=== PATIENT | female | born 2000 | race Caucasian/White ===

== ENCOUNTER 2021-08-16 11:14 | Emergency (ER) | payer MEDICAID ==
[~2021-08-16] VITALS: Ht 167.6 cm; Wt 72.7 kg
[2021-08-16 11:23] VITALS: TEMP 98.1
[2021-08-16 11:55] LABS: MEAN CELL VOLUME 92 fl (80.0-100.0); MEAN CORPUSCULAR HEMOGLOBIN 30 pg (27.0-31.0); MEAN CORPUSCULAR HGB CONC 33 g/dl (33.0-37.0); MEAN PLATELET VOLUME 9.6 fl (7.4-10.4); PLATELET COUNT 322 K/mm3 (130-400); RED BLOOD COUNT 3.65 M/mm3 (4.10-5.30)
[2021-08-16 11:57] LABS: HEMATOCRIT 33.6 % (37.0-47.0)
[2021-08-16 11:59] LABS: COLLECTION METHOD CLEAN CATCH
[2021-08-16 12:03] LABS: ALBUMIN 3.9 gm/dL (3.5-5.0); BILIRUBIN,TOTAL 0.2 mg/dL (0.0-1.0); CALCIUM 8.7 mg/dL (8.4-10.2); CREATININE, serum 0.48 (0.52-1.25); POTASSIUM 3.8 mmol/L (3.4-5.0); TOTAL PROTEIN 7.4 gm/dL (6.4-8.2)
[2021-08-16 12:05] LABS: MUCOUS Present /lpf; PH 6 (5-8); SQUAMOUS EPITHELIAL 0-2 /hpf; URINE APPEARANCE Hazy; URINE BACTERIA Rare /hpf; URINE BILIRUBIN Negative (NEGATIVE); URINE BLOOD Negative (NEGATIVE); URINE COLOR Yellow; URINE GLUCOSE 1+ (NEGATIVE); URINE KETONE Negative (NEGATIVE); URINE LEUKOCYTE ESTERASE Negative (NEGATIVE); URINE NITRATE Negative (NEGATIVE); URINE PROTEIN(semi-quant) 2+ (NEGATIVE)
[2021-08-16 12:19] LABS: BAND 12 % (0-10); LYMPHOCYTE 17 % (20.0-51.0); NEUTROPHILS 70 % (42.0-75.2); PLATELET ESTIMATE NORMAL (NORMAL)
[2021-08-16 12:33] LABS: TSH w REFLEX 0.667 uIU/mL (0.350-4.940)
[2021-08-16] MEDS ORDERED: REGLAN 10MG10 MG/TAB PO (13:33)
[2021-08-16 13:58] VITALS: BP 108/63; PULSE 83
== END 2021-08-16 13:59 | disposition home or self-care (01) ==
LOC: COL.ER 11:14
PROVIDERS: Physician Assistant
DX: O26.892 Other specified pregnancy related conditions, second trimester (principal); R55 Syncope and collapse; D72.829 Elevated white blood cell count, unspecified; Z3A.21 21 weeks gestation of pregnancy
CPT/HCPCS: J7030

== ENCOUNTER 2021-12-18 10:45 | Inpatient (IN) | payer MEDICAID ==
[2021-12-18] VITALS (15 sets, daily range): BP systolic 102–130; BP diastolic 50–71; PULSE 68–115; TEMP 97.9–98.5
[~2021-12-18] VITALS: Ht 7 cm; Wt 82.3 kg
[~2021-12-18 10:45] MED LIST: REGLAN 10MG10 MG/TAB PO
--- NOTE | 2021-12-18 10:50 | NUR ---
Presents to labor and delivery. Vag exam done, dilated to five, eighty percent, minus two. Breathes through contractions. States has a birthing plan. Iv start to right upper arm. States not wanting any iv fluids. Spouse at bedside, very supportive.
[2021-12-18 11:47] LABS: BASO % 0.2 % (0.0-2.0); EOS # 0.1 K/mm3 (0.0-0.7); EOS % 0.6 % (0.0-4.0); GRAN # 12.3 K/mm3 (1.4-6.5); HEMOGLOBIN 10.2 g/dl (12.5-16.0); LYMPH # 3.1 K/mm3 (1.2-3.4); LYMPH % 18.3 % (20.0-51.0); MEAN CELL VOLUME 80 fl (80.0-100.0); MEAN CORPUSCULAR HEMOGLOBIN 26 pg (27-31); MEAN CORPUSCULAR HGB CONC 33 g/dl (33.0-37.0); MEAN PLATELET VOLUME 10.7 fl (7.4-10.4); MONO # 1.3 K/mm3 (0.1-0.6); MONO % 7.8 % (1.7-9.3); PLATELET COUNT 336 K/mm3 (130-400); RED BLOOD COUNT 3.91 M/mm3 (4.10-5.30); REDCELL DISTRIBUTION WIDTH-CV 13.6 % (11.5-14.5)
[2021-12-18 11:48] LABS: HEMATOCRIT 31.3 % (37.0-47.0)
--- NOTE | 2021-12-18 15:28 | NUR ---
1355 DR GORDON SVE AROM WITH AMNIOHOOK. LARGE AMOUNT CLEAR FLUID.
--- NOTE | 2021-12-18 15:32 | NUR ---
1445 PATIENT PUSHES WITH EACH CONTRACTIONS. DR GORDON AT BEDSIDE. [address] GORDON. PATIENT TOLERATES WELL. REPAIR DONE BY DR GORDON AFTER INJECTING LIDOCAINE 1% FOR REPAIR. TOLERATES WELL. 1450 PLACENTA DELIVERED. PATIENT DOES NOT WANT PITOCIN STARTED AT THIS TIME. FUNDUS FIRM AT THIS TIME AND BLEEDING WNL. 1500 LARGE GUSH OF BLEEDING NOTED AND FUNDUS BOGGY. MASSAGE UNTIL FIRM AND PITOCIN STARTED PER DR GORDON ORDER. PITOCIN AT 333/HR. PATIENT OK WITH PITOCIN STARTING. 1505 FUNDUS FIRM AND BLEEDING WNL.
--- NOTE | 2021-12-18 18:35 | NUR ---
1834- PT ASSISTED TO BATHROOM. ABLE TO VOID 200ML WITHOUT DIFFICULTY. PT INSTRUCTED ON PERICARE AND TUCKS PADS. NORMAL LOCHIA DISCUSSED. CLEAN GOWN, PAD, AND PANTIES PROVIDED. ICEPACK AND TUCKS TO PERINEUM. PT STATES SHE IS VERY TIRED. ENCOURAGED A GOOD MEAL AND A NAP. 1849- PT ASSISTED TO AMBULATE TO ROOM 207. ON THE WAY THERE PT STATES SHE IS REALLY TIRED, BUT IS ABLE TO AMBULATE TO ROOM AND SIT DOWN WITHOUT DIFFICULTY. BELONGINGS AND BABY SENT WITH PT. PT ORIENTED TO ROOM AND CALL LIGHTS. PLAN OF CARE DISCUSSED AND QUESTIONS ANSWERED. PT DENIES FURTHER NEEDS AT THIS TIME.
[2021-12-19 02:30] VITALS: BP 114/59; PULSE 83; TEMP 98.1
--- NOTE | 2021-12-19 07:30 | NUR ---
PATIENT SLEEPING. REPORT RECEIVED FROM OFF GOING RN, YAJAIRA Patel CARE TAKEN OVER BY THIS RN.
[2021-12-19 08:34] VITALS: BP 103/59; PULSE 101; TEMP 98.2
[2021-12-19 16:55] VITALS: BP 118/73; PULSE 100; TEMP 98.2
[2021-12-19 18:55] VITALS: BP 109/70; PULSE 102; TEMP 97.4
[2021-12-20 07:30] VITALS: BP 106/63; PULSE 95; TEMP 97.6
[2021-12-20] MEDS ORDERED: IBU800 M1 PO (08:51)
== END 2021-12-20 13:40 | disposition home or self-care (01) | DRG 807 ==
LOC: LDRO 10:45 → LDR 10:50 → OB 10:50 → EDSTATUS 11:22 → OB 16:04 → LDRO 12-21 15:06
PROVIDERS: ADMIT Obstetrics & Gynecology
PROC: 10E0XZZ Delivery of Products of Conception, External Approach (ICD-10-PCS; principal; 2021-12-18)
PROC: 0KQM0ZZ Repair Perineum Muscle, Open Approach (ICD-10-PCS; 2021-12-18)
PROC: 10907ZC Drainage of Amniotic Fluid, Therapeutic from Products of Conception, Via Natural or Artificial Opening (ICD-10-PCS; 2021-12-18)
DX: O69.81X0 Labor and delivery complicated by cord around neck, without compression, not applicable or unspecified (principal); Z37.0 Single live birth; O70.1 Second degree perineal laceration during delivery; Z3A.39 39 weeks gestation of pregnancy
CPT/HCPCS: J2590; J7120

== ENCOUNTER → 2021-12-22 | Outpatient (CLI) | payer MEDICAID ==
[~2021-12-22] MED LIST changes: +IBU800 M1 PO
--- NOTE | 2021-12-22 16:14 | NUR ---
Pt, Maryann Evans, presents for outpatient consult with four day old baby girl, Vishnu Evans, and her spouse, Jeff Evans. Vishnu was born on [birth year] and weighed 7#13.9oz. They are using a nipple shield and pt desires information about latching without and to ensure Vishnu is getting enough to eat. Vishnu is nursing about 10 times daily, has qs voids and stools. Pt states her milk has increased and is a little engorged. Today Vishnu weighs 7#3.9oz, a loss of 7% from . We attempt to latch without the nipple shield but with the milk increasing we are unable to get the nipple deep enough in her mouth to latch. After nursing a few minutes with the shield, Vishnu latches for just a minute or so but then does not relatch so the shield is replaced. Vishnu nurses well with the shield bilaterally and has a weight gain of 76 gms. She is content. Discussed weaning from nipple shield after Vishnu is above weight and is a little more eager to open her mouth for latching. LC notes yellow undertones to Vishnu's skin but is active and nursed well. Pt advised to review jaundice concerns with Dr. Oconnell at the appt tomorrow. POC: Continue BF on demand. F/U: With Dr. Oconnell 12/23/21 as scheduled. Questions invited and answered.
== END ==
LOC: LAC 14:48
DX: Z71.89 Other specified counseling (principal)

== ENCOUNTER → 2024-06-19 | Outpatient (CLI) | payer OTHER ==
[~2024-06-19] MED LIST changes: +FLEXERIL 1010 MG/TAB PO; +MOTRIN 800800 MG/TAB PO; +PERCOCET 325 MG1 TA2 PO
== END ==
LOC: COL.RAD 11:08
DX: R10.2 Pelvic and perineal pain (principal)